=== PATIENT | male | born 1950 | race Caucasian/White ===

== ENCOUNTER 2016-06-22 07:20 | Inpatient (IN) | payer BC, MEDICARE ==
[~2016-06-22] VITALS: Ht 175.3 cm; Wt 87.0 kg
[~2016-06-22 07:20] MED LIST: ASA CHILDREN'S81 MG PO; DESYREL-DPS50 MG PO; FLOMAX DPS0.4 MG PO; GLUCOPHAGE1000 MG PO; LEVAQUIN DPS750 MG PO; LOPRESSOR DPS100 MG PO; SLOW-MAG64 MG PO; TYLENOL DPS325 MG PO; ZESTRIL DPS20 MG PO
[2016-06-25] MEDS ORDERED: ZITHROMAX250 MG PO (09:10)
[2016-06-25] MEDS ORDERED: TAMIFLU75 MG PO (09:10)
[2016-06-25] MEDS ORDERED: MAALOX DPS30 ML PO (09:10)
[2016-06-25] MEDS ORDERED: MOTRIN-DPS600 MG PO (09:10)
[2016-06-25] MEDS ORDERED: CRANBERRY450 M1 PO (09:11)
[2016-06-25] MEDS ORDERED: ZANAFLEX4 MG PO (09:11)
--- NOTE | 2016-06-28 15:54 | ER ---
ADMIT: 06/22/2016 RM/LOC: 314 [facility] MR#: [id number] [address] [id number] WANDA FI[address] [place] [address] Emergency Room Report SEX: M AGE: 66 : 1950 DATE: 06/22/2016 ADDENDUM: This 66-year-old white male coming with fever, little bit lethargic. He gets septic rather easily, we think this is from his recurrent prostatitis, but unknown at this time. Chest x-ray is okay. He did have an episode of hypotension with MAP at least below 60s, into the 50s or more. He received his 30 mL/kg. Lactate is 2. Chest x-ray is negative. Influenza was negative. His glucose is 231. Urine is pending at this time. At this time, we are going to call him sepsis. He has had multiple episodes of this. He is allergic to penicillin, we will put him on aztreonam and Vanco. I spoke with Dr. Rosario, he will need to admit him. CONDITION ON DISCHARGE: Critical, but stable. Tremayne Sullivan MD/ modl JOB #: [id number] CC: Jed Rosario MD, Attending Physician Jed Rosario MD, Family Physician
--- NOTE | 2016-06-30 10:41 | HP ---
ADMIT: 06/22/2016 RM/LOC: 314 [facility] MR#: [id number] ACC#: [id number] 26[address] [facility] [address] [place] [id number] WANDA FI[address] [place] [address] History and Physical SEX: M AGE: 66 : 1950 DATE OF SERVICE: CHIEF COMPLAINT: Fever and weakness. HISTORY OF PRESENT ILLNESS: The patient is a 66-year-old, white male, who presented to the emergency room today on his own complaining of weakness and fevers. He said he has been a little ill with a cough and some sore throat and congestion for the last week. It did not really seem like that was getting too bad, but then yesterday, he spiked a fever up to 102 in the evening. He took some Tylenol and ibuprofen and this morning was down to 101, but he felt extremely weak and just not good, so he came into the emergency room. He did have a temp of 101.1 in the emergency room. Also, dropped his blood pressure once he was relaxed in the bed there down to 75/49. He really had no other findings, and a flu screen was negative, but given his low blood pressure and fevers, he was admitted and started on antibiotics. PAST MEDICAL HISTORY: The patient has had hospitalizations for urosepsis twice in the past couple of years. He also has hypertension, diabetes mellitus type 2, osteoarthritis, asthma, and subarachnoid hemorrhage in 1993. PAST SURGICAL HISTORY: Partial knee replacement in 2007, left knee arthroscopy in 2002, aneurysm clip in 1983, multiple cystoscopies for ureteral stones, and lithotripsy. MEDICATIONS: 1. Metformin 1000 mg b.i.d. 2. Tizanidine 2 mg, 1-2 at bedtime. 3. Metoprolol 100 mg b.i.d. 4. Lisinopril 20 mg daily. 5. Tamsulosin 0.4 mg daily. 6. Aspirin 81 mg daily. 7. Magnesium chloride 64 mg b.i.d. 8. Cranberry 1 capsule daily. ALLERGIES: PENICILLIN AND SULFA. FAMILY HISTORY: No major medical issues in the family. SOCIAL HISTORY: The patient is . He works at [employer]. He denies any tobacco, alcohol, or drug use. REVIEW OF SYSTEMS: CONSTITUTIONAL: Just the weakness and fevers and chills. HEENT: Denies headache or vision changes. Has had nasal congestion and mild clear rhinorrhea and a mild sore throat that is actually better. CARDIAC: No chest pain or palpitations. RESPIRATORY: No shortness of breath but a mild cough that has been basically nonproductive. GASTROINTESTINAL: No abdominal pain, nausea, vomiting, or diarrhea at home, though since his fluid bolus, he has had some loose stools here. No blood in ADMIT: 06/22/2016 RM/LOC: 314 [facility] MR#: [id number] [address] [place], [place] [phone] [address] [place] [address] History and Physical SEX: M AGE: 66 : 1950 the stools or black tarry stools. GENITOURINARY: He has been urinating normally and denies any dysuria, hematuria, hesitancy, or incomplete voiding at home. Does take Flomax for chronic prostatitis. No recent kidney stones. MUSCULOSKELETAL: Does feel a little achy all over. He does have arthritis issues but really nothing worse than his baseline now. SKIN: No rashes. NEURO: Denies any focal neurologic changes. PHYSICAL EXAMINATION: VITAL SIGNS: Temp in ER was 101.1, is down to 100.5 now. Blood pressure was 125/80 now after his 30 mL/kg bolus, but it dropped to 75/49 in the emergency room. Pulse is now 84, respirations 14, sats are 93% on room air. GENERAL: The patient is alert and oriented x3 and in no acute distress. HEENT: Head is atraumatic, normocephalic. Sclerae are clear. Pupils are round and reactive. Nares are patent. Oropharynx looks moist and without lesions. NECK: Supple with no lymphadenopathy or thyromegaly. HEART: Regular in rate and rhythm without murmurs. LUNGS: Sound clear to auscultation bilaterally. ABDOMEN: Soft, nondistended, and nontender with good bowel sounds. No CVA tenderness. EXTREMITIES: Have no edema. SKIN: Without rashes. MUSCULOSKELETAL: Joints have no effusions, just postop changes in the knee. LABORATORY AND X-RAY DATA: White count 7.8, hemoglobin 13, BUN 15, creatinine 1.3, glucose was 231. Flu screen was negative for A and B. LFTs are normal. Magnesium is 1.6. CK and troponin I are both normal. Chest x-ray was normal. UA was normal. Lactic acid was 2.0, and his procalcitonin was 0.09. ASSESSMENT: 1. Fever of unknown origin, possibly viral syndrome versus prostatitis. 2. Sepsis. 3. Hypertension. ADMIT: 06/22/2016 RM/LOC: 314 [facility] MR#: [id number] [address] [place] [phone] WANDA FI[address] [place] [address] History and Physical SEX: M AGE: 66 : 1950 4. History of prostatitis and urosepsis. 5. Diabetes mellitus type 2 with hyperglycemia. 6. Hypertension. PLAN: We will continue with IV fluids for now and he has been started on aztreonam and vancomycin as well. He has been placed in the ICU due to his hypotensive episode. We will continue monitoring closely for further issues with that. If remains stable, could transfer up to the floor and continue IV antibiotics until cultures are available. We will check a respiratory viral panel just to check for other viral illnesses that may be contributing. I will keep him on Lovenox for DVT prophylaxis and Pepcid for GI prophylaxis while here in the intensive care unit. Alma Rosa Ceron MD/ carol JOB #: [id number] CC: Jed Rosario, Attending Physician Jed Rosario, Family Physician
--- NOTE | 2016-08-03 11:32 | DS ---
ADMIT: 06/22/2016 RM/LOC: 314 [facility] MR#: [id number] [address] [phone] W[address] FI[address] [place] [address] General Discharge Summary SEX: M AGE: 66 : 1950 ADMISSION DATE: 06/22/2016 DISCHARGE DATE: 06/24/2016 FINAL DIAGNOSES: 1. Acute influenza A with pneumonitis. 2. Type 2 diabetes. 3. Hypertension. 4. Benign prostatic hypertrophy with chronic prostatitis. 5. Type 2 diabetes. 6. Chronic left knee pain, failed partial total knee. COMPLICATIONS: None. OPERATIONS: None. CLINICAL HISTORY: Mr. Field is a 66-year-old white male, who was admitted to [facility] after presenting to the emergency room complaining of weakness, fever, and chills. The patient has a history of recurrent urosepsis related to chronic prostatitis in the past. He was evaluated in the ER, where his temp was noted to be 102. He was noted to be hypotensive with a blood pressure of 75/49. Following his evaluation in the ER, it was felt best to admit for treatment of possible sepsis. For further details of his clinical history as well as past medical history and pertinent findings on physical exam, please see dictated history and physical. LABORATORY AND X-RAY SUMMARY FROM THIS ADMISSION: His initial CBC showed a white count of 7800, hemoglobin 13, hematocrit 39.8. On his second hospital day, white count was 5000, hemoglobin 12, hematocrit 37.5. His pro-time on admission was normal with an INR of 1.07. Urinalysis on admission showed 1+ protein, negative nitrites, negative leukocyte esterase, 1 wbc per high-power field. His chemistry studies on admission showed a sodium of 133, potassium 4.1, BUN 15, creatinine 1.3. Blood sugar was elevated at 231 on admission. At discharge, his sodium was 140, potassium 3.6, BUN was 10, creatinine was 0.9. His lactic acid on admission was 2.0. At discharge, lactic acid was 0.8. Procalcitonin on admission was normal at 0.09. Fingerstick blood sugars were monitored q.i.d. and ranged from a low of 89 to a high of 168 during this hospitalization. His initial influenza screen was negative. Blood cultures drawn on admission showed no growth. His viral respiratory panel was positive for influenza A. urine culture showed no growth. X-ray studies included a chest x-ray, which showed some changes consistent with possible viral pneumonitis, but no consolidative pneumonia. EKG showed sinus arrhythmia with nonspecific ST-T wave changes. HOSPITAL COURSE: The patient was admitted with concerns for possible sepsis. He was hydrated aggressively with IV fluids, and he was started on IV Azactam while in the ER. He was continued on the IV Azactam pending results of cultures. His respiratory viral panel showed him to be positive for influenza A. he was also started on IV vancomycin shortly after admission, and continued on the IV vancomycin and IV Azactam until his blood cultures ADMIT: 06/22/2016 RM/LOC: 314 [facility] MR#: [id number] [address] [place] [phone] WAN[address] FI[address] [place] [address] General Discharge Summary SEX: M AGE: 66 : 1950 returned negative. His positive influenza A on the viral respiratory panel prompted him to be started on Tamiflu 75 mg b.i.d. and 24 hours following admission, he was feeling much better. Temps were coming down. His cough was lessening and he in general felt better with rehydration. We continued him on IV fluids and IV antibiotic until discharge. He was dismissed to home on 06/24/2016, his third hospital day. At discharge, his medications were to include: 1. Baby aspirin 81 mg daily. 2. Flomax 0.4 mg at bedtime. 3. Glucophage 1000 mg b.i.d. 4. Lopressor 100 mg b.i.d. 5. Slow-Mag 64 mg b.i.d. 6. Tamiflu 75 mg b.i.d. for 5 days. 7. Zestril 20 mg daily. 8. Maalox p.r.n. indigestion. 9. Motrin 600 mg p.r.n. joint pain. 10.Tylenol p.r.n. minor discomfort. 11.Zithromax Z-Kory for 5 days. He is to follow up in our office in 5 to 7 days. CONDITION AT DISCHARGE: Stable and improved. Jed Rosario MD/ keithl JOB #: [id number] CC: Jed Rosario MD, Attending Physician Jed Rosario MD, Family Physician
== END 2016-06-24 12:15 | disposition home or self-care (01) | DRG 195 ==
LOC: ER 07:20 → 3ICU 10:05
PROVIDERS: ADMIT Family Medicine
DX: J10.00 Influenza due to other identified influenza virus with unspecified type of pneumonia (principal); I10 Essential (primary) hypertension; E11.9 Type 2 diabetes mellitus without complications; M19.90 Unspecified osteoarthritis, unspecified site; J45.909 Unspecified asthma, uncomplicated; N40.0 Benign prostatic hyperplasia without lower urinary tract symptoms; N41.1 Chronic prostatitis; M25.562 Pain in left knee; Z96.652 Presence of left artificial knee joint; Z79.82 Long term (current) use of aspirin